=== PATIENT | female | born 1995 ===

== ENCOUNTER 2017-10-17 11:06 | Emergency (ER) | payer MEDICAID, OTHER ==
[2017-10-17 11:17] VITALS: BP 108/71; PULSE 76; RESP 20; TEMP 97.8; O2SAT 99
--- NOTE | 2017-10-17 11:51 | RAD ---
HISTORY: COUGH COMPARISON: None available. TECHNIQUE: Chest PA and lateral FINDINGS: LUNGS: Minimal right perihilar opacity likely subsegmental atelectasis. Developing infiltrate cannot be entirely excluded. Please note that chest x-ray has limited sensitivity for the detection of pulmonary masses. PLEURA: No significant pleural effusion identified. No definite pneumothorax . CARDIOVASCULAR: The cardiomediastinal silhouette appears within normal limits of size. OSSEOUS STRUCTURES: No acute osseous abnormality identified. VISUALIZED UPPER ABDOMEN: Unremarkable. OTHER FINDINGS: None. IMPRESSION: Minimal right perihilar opacity likely subsegmental atelectasis. Developing infiltrate cannot be entirely excluded. Correlate clinically.
--- NOTE | 2017-10-17 11:59 | C.PDOC ---
History Of Present Illness 22 y/o female, with a history of smoking, presents to the ER complaining of coughing which has been present for two weeks. She reports that she coughs up " dark phlegm". She also reports associated post-tussive vomiting and diarrhea. She denies any chest pain or shortness of breath. Time Seen by Provider: 10/17/17 11:41 Chief Complaint (Nursing): Cough, Cold, Congestion History Per: Patient History/Exam Limitations: no limitations Onset/Duration Of Symptoms: Days Current Symptoms Are (Timing): Still Present Associated Symptoms: Cough, Sputum (black ), Vomiting (post-tussive), Diarrhea Past Medical History Reviewed: Historical Data, Nursing Documentation, Vital Signs Vital Signs: Last Vital Signs Temp 97.8 F 10/17/17 11:15 Pulse 76 10/17/17 11:15 Resp 20 10/17/17 11:15 BP 108/71 10/17/17 11:15 Pulse Ox 99 10/17/17 12:13 - Medical History PMH: Anxiety, Asthma, Bipolar Disorder, Depression Denies: Diabetes, Hepatitis, HIV, HTN, Chronic Kidney Disease, Seizures, Sexually Transmitted Disease Surgical History: No Surg Hx - [facility] Procedures MONITORING NOS (12/11/14) MANUAL ASSIST DELIV NEC (12/11/14) Family History: States: No Known Family Hx - Social History Hx Tobacco Use: Yes Hx Alcohol Use: Yes Hx Substance Use: No - Immunization History Hx Tetanus Toxoid Vaccination: No Hx Influenza Vaccination: No Hx Pneumococcal Vaccination: No Review Of Systems Constitutional: Negative for: Fever, Chills Cardiovascular: Negative for: Chest Pain Respiratory: Positive for: Cough, Sputum (dark phlegm). Negative for: Shortness of Breath Gastrointestinal: Positive for: Vomiting (post-tussive vomiting), Diarrhea. Negative for: Nausea Physical Exam - Physical Exam Appears: Other (uncomfortable) Skin: Normal Color, Warm Head: Atraumatic, Normacephalic Eye(s): bilateral: Normal Inspection Nose: Other (sinus congestion noted) Oral Mucosa: Moist Neck: Supple Chest: Symmetrical Cardiovascular: Rhythm Regular Respiratory: Normal Breath Sounds, No Accessory Muscle Use Neurological/Psych: Oriented x3, Normal Speech, Normal Cognition ED Course And Treatment O2 Sat by Pulse Oximetry: 99 (RA) Pulse Ox Interpretation: Normal - Radiology CXR: Interpreted by Me CXR Interpretation: Yes: No Acute Disease Progress Note: Patient offered nebulizer treatment which she declined. Patient to be discharged home with inhaler, antibiotics and instructions for follow up. Disposition Counseled Patient/Family Regarding: Studies Performed, Diagnosis, Need For Followup, Rx Given - Disposition Referrals: YOUR,PMD [Other] Disposition: HOME/ ROUTINE Disposition Time: 11:58 Condition: IMPROVED Prescriptions: Albuterol HFA [Ventolin HFA 90 mcg/actuation (8 g)] 1 puff IH Q4 #1 inhaler Azithromycin 250 mg PO DAILY #6 tab Benzonatate [Tessalon Perles] 200 mg PO TID PRN #15 sgl PRN Reason: Cough Instructions: Acute Bronchitis (ED) Forms: [employer] (Guyanese) - Clinical Impression Clinical Impression: Bronchitis - Scribe Statement Alistair Rutledge Provider Attestation: All medical record entries made by the Scribe were at my direction and personally dictated by me. I have reviewed the chart and agree that the record accurately reflects my personal performance of the history, physical exam, medical decision making, and the department course for this patient. I have also personally directed, reviewed, and agree with the discharge instructions and disposition.
== END 2017-10-17 12:12 | disposition home or self-care (01) ==
LOC: C.ER 11:06
DX: J40 Bronchitis, not specified as acute or chronic (principal)

== ENCOUNTER 2017-10-29 17:55 | Emergency (ER) | payer OTHER ==
[2017-10-29 18:01] VITALS: TEMP 98.6; O2SAT 96
[2017-10-29] MEDS ORDERED: Albuterol-Ipratrop 3 mg / 0.5 (3 ml) UD IH STA (18:17)
--- NOTE | 2017-10-29 18:21 | C.PDOC ---
History Of Present Illness 22 yo female w/PMHx of asthma come in for evaluation of cold sx for past 2 weeks associated with runny nose, productive cough with brownish sputum. As per pt, for past few days developed asthma sx associated with chest tightness, wheezing. Pt sts, ran out of albuterol inh. Otherwise, pt denies fever, chills, headache, dizziness, drooling, neck pain, CP, dyspnea, palpitation, abd. pain, V /D, back pain. Ambulate to ED for evaluation, not in resp. distress. Time Seen by Provider: 10/29/17 18:03 Chief Complaint (Nursing): Cough, Cold, Congestion History Per: Patient Onset/Duration Of Symptoms: Gradual Past Medical History Reviewed: Historical Data, Nursing Documentation, Vital Signs Vital Signs: Last Vital Signs Temp 98.6 F 10/29/17 18:00 Pulse 101 H 10/29/17 18:00 Resp 20 10/29/17 18:00 BP 116/64 10/29/17 18:00 Pulse Ox 96 10/29/17 18:25 - Medical History PMH: Anxiety, Asthma, Bipolar Disorder, Depression Denies: Diabetes, Hepatitis, HIV, HTN, Chronic Kidney Disease, Seizures, Sexually Transmitted Disease Surgical History: No Surg Hx - [facility] Procedures MONITORING NOS (12/11/14) MANUAL ASSIST DELIV NEC (12/11/14) Family History: States: No Known Family Hx - Social History Hx Tobacco Use: Yes Hx Alcohol Use: Yes Hx Substance Use: No - Immunization History Hx Tetanus Toxoid Vaccination: No Hx Influenza Vaccination: No Hx Pneumococcal Vaccination: No Review Of Systems Except As Marked, All Systems Reviewed And Found Negative. Constitutional: Negative for: Fever, Chills ENT: Positive for: Nose Discharge, Nose Congestion. Negative for: Ear Discharge , Throat Swelling Cardiovascular: Positive for: Chest Pain Respiratory: Positive for: Cough, Sputum, Wheezing Gastrointestinal: Negative for: Nausea, Vomiting, Abdominal Pain Genitourinary: Negative for: Dysuria, Incontinence Musculoskeletal: Negative for: Neck Pain, Back Pain Skin: Negative for: Rash Neurological: Negative for: Weakness, Numbness, Altered Mental Status, Dizziness Physical Exam - Physical Exam Appears: Well, No Acute Distress Skin: Normal Color, Warm, Dry, No Rash Eye(s): bilateral: PERRL Ear(s): Bilateral: Normal Nose: No Flaring, Discharge (scant B/L, clear) Oral Mucosa: Moist, No Drooling Throat: No Erythema, No Exudate Neck: Trachea Midline, Supple Cardiovascular: Rhythm Regular Respiratory: No Decreased Breath Sounds, No Accessory Muscle Use, No Rales, No Rhonchi, Wheezing (scattered Right base wheezing. BS equal B/L.) Gastrointestinal/Abdominal: Soft, No Tenderness, No Distention, No Guarding Extremity: Normal ROM, No Deformity, No Swelling Neurological/Psych: Oriented x3, Normal Speech ED Course And Treatment O2 Sat by Pulse Oximetry: 96 Pulse Ox Interpretation: Normal - Radiology CXR: Interpreted by Me, Viewed By Me CXR Interpretation: Yes: No Acute Disease Progress Note: On re-evaluation, pt is afebrile, hemodynamicaly stable. Non- toxic. Pt reports, moderate improvement in sx, and request disachrge now. PulseOx 96% RA. ENT: no acute findings. NEck: Supple, (-) meningeal sign. LUngs: mod improvement in wheezing, BS equal B/L. Abd: Benign. Back:(-) CVA tenderness. CXR- no acute findings. PT has clinical findings c/w asthma exacerbation, acute bronchitis. Pt advised on course of ds. ref. to F/u with PMD in 2-3 days for re-eavl. return to ED if any worsening or new changes. Disposition Counseled Patient/Family Regarding: Studies Performed, Diagnosis, Need For Followup, Rx Given - Disposition Referrals: [facility] [Outside] Disposition: HOME/ ROUTINE Disposition Time: 18:58 Condition: STABLE Additional Instructions: ENCOURAGE FLUIDS TAKE MEDICATION PRESCRIBED FOLLOW UP WITH PMD, PULMONOLOGY IN 2-3 DAYS FOR RE-EVALUATION. RETURN TO ED IF ANY WORSENING OR NEW CHANGES. Prescriptions: Albuterol HFA [Ventolin HFA 90 mcg/actuation (8 g)] 1 puff IH Q6 #1 inhaler Azithromycin [Zithromax] 250 mg PO DAILY #4 tab Loratadine/Pseudoephedrine [Claritin-D 24 Hour Tablet] 1 each PO DAILY #10 tab.er.24h Prednisone [Deltasone] 40 mg PO DAILY #6 tablet Instructions: Asthma (ED), Acute Bronchitis (ED) Forms: [employer] (Malawian) - Clinical Impression Clinical Impression: Bronchitis, Asthma
[2017-10-29] MEDS ORDERED: Albuterol-Ipratrop 3 mg / 0.5 (3 ml) UD ONE (18:36)
[2017-10-29 19:08] VITALS: BP 136/83; PULSE 102; RESP 18
--- NOTE | 2017-10-30 09:25 | RAD ---
HISTORY: COMPARISON: 10/17/2017 TECHNIQUE: Chest PA and lateral FINDINGS: LINES AND TUBES: None. LUNG AND PLEURA: The lungs are well inflated and clear. HEART AND MEDIASTINUM: The heart is not enlarged. The hilar and mediastinal contours are within normal limits. SKELETAL STRUCTURES: The bony structures are within normal limits for the patient's age. VISUALIZED UPPER ABDOMEN: Normal. OTHER FINDINGS: None. IMPRESSION: No active pulmonary disease.
== END 2017-10-29 19:08 | disposition home or self-care (01) ==
LOC: C.ER 17:55
DX: J45.909 Unspecified asthma, uncomplicated (principal); Z87.891 Personal history of nicotine dependence

== ENCOUNTER 2017-12-08 15:38 | Emergency (ER) | payer OTHER ==
[2017-12-08 16:20] VITALS: BP 107/74; PULSE 90; RESP 18; TEMP 98.3; O2SAT 98
--- NOTE | 2017-12-08 17:28 | C.PDOC ---
History Of Present Illness 22 year old female presents to the ED c/o sore throat, productive cough with yellow phlegm for the past 3 days. Patient is also c/o foot fungus as well. Patient denies fever, chills, nausea, vomit, diarrhea, recent travel, sick contacts. Time Seen by Provider: 12/08/17 16:58 Chief Complaint (Nursing): ENT Problem History Per: Patient History/Exam Limitations: no limitations Onset/Duration Of Symptoms: Days Current Symptoms Are (Timing): Still Present Location Of Pain: Throat Sick Contacts (Context): None Associated Symptoms: Cough, Sputum Ear Symptoms: Bilateral: None Recent travel outside of the [place]: No Additional History Per: Patient Past Medical History Reviewed: Historical Data, Nursing Documentation, Vital Signs Vital Signs: Last Vital Signs Temp 98.3 F 12/08/17 16:18 Pulse 90 12/08/17 16:18 Resp 18 12/08/17 16:18 BP 107/74 12/08/17 16:18 Pulse Ox 98 12/08/17 17:28 - Medical History PMH: Anxiety, Asthma, Bipolar Disorder, Depression Denies: Diabetes, Hepatitis, HIV, HTN, Chronic Kidney Disease, Seizures, Sexually Transmitted Disease Surgical History: No Surg Hx - [facility] Procedures MONITORING NOS (12/11/14) MANUAL ASSIST DELIV NEC (12/11/14) Family History: States: Unknown Family Hx - Social History Hx Tobacco Use: Yes Hx Alcohol Use: Yes Hx Substance Use: No - Immunization History Hx Tetanus Toxoid Vaccination: No Hx Influenza Vaccination: No Hx Pneumococcal Vaccination: No Review Of Systems Constitutional: Negative for: Fever, Chills ENT: Positive for: Throat Pain Cardiovascular: Negative for: Chest Pain, Palpitations Respiratory: Positive for: Cough, Sputum Gastrointestinal: Negative for: Nausea, Vomiting, Abdominal Pain Genitourinary: Negative for: Dysuria, Hematuria Skin: Positive for: Rash Neurological: Negative for: Weakness, Numbness, Headache Physical Exam - Physical Exam Appears: Non-toxic, No Acute Distress Skin: Normal Color, Warm, Dry Head: Atraumatic, Normacephalic Eye(s): bilateral: Normal Inspection Ear(s): Bilateral: Normal Nose: No Discharge, No Deformity Oral Mucosa: Moist Throat: Erythema (tonsillar hypertrophy), Exudate (scant) Lymphatic: Adenopathy (tenderness B/L anterior cervical ) Extremity: Normal ROM, No Tenderness, Capillary Refill (< 2 seconds), No Deformity, No Swelling, Other (+ fungal rash B/L web spaces of toes, no cellulitic process) Pulses: Left Dorsalis Pedis: Normal, Right Dorsalis Pedis: Normal Neurological/Psych: Oriented x3, Normal Speech, Normal Cognition Gait: Steady ED Course And Treatment O2 Sat by Pulse Oximetry: 98 (On RA) Pulse Ox Interpretation: Normal Medical Decision Making Medical Decision Making: Impression : pharyngitis and fungal pedis Plan: * Amoxicillin 500 mg PO * Motrin 600 mg PO Disposition Counseled Patient/Family Regarding: Studies Performed, Diagnosis, Need For Followup, Rx Given - Disposition Referrals: at [facility] [Outside] Disposition: HOME/ ROUTINE Disposition Time: 17:26 Condition: STABLE Additional Instructions: follow up with doctor in 2 days call to make an appointment take medication as needed for pain return to ER if symptoms worsens or progress Prescriptions: Amoxicillin 875 mg PO BID #20 tablet Clotrimazole 1% Cream [Lotrimin 1%] 1 applic TP BID #30 tube Instructions: Tinea Pedis (ED), Pharyngitis (ED) Forms: [employer] (Nepali) - Clinical Impression Clinical Impression: Pharyngitis, Tinea pedis - Scribe Statement The provider has reviewed the documentation as recorded by the Scribiftikhar Banuelos All medical record entries made by the Scribe were at my direction and personally dictated by me. I have reviewed the chart and agree that the record accurately reflects my personal performance of the history, physical exam, medical decision making, and the department course for this patient. I have also personally directed, reviewed, and agree with the discharge instructions and disposition.
== END 2017-12-08 17:48 | disposition home or self-care (01) ==
LOC: C.ER 15:38
DX: B35.3 Tinea pedis (principal); J02.9 Acute pharyngitis, unspecified; Z87.891 Personal history of nicotine dependence

== ENCOUNTER 2017-12-29 09:28 | Emergency (ER) | payer OTHER ==
[2017-12-29 09:30] VITALS: BMI 27.4
[2017-12-29 09:33] VITALS: BP 128/85; RESP 18; TEMP 99.5; O2SAT 99
[2017-12-29 09:34] VITALS: PULSE 101
== END 2017-12-29 09:35 | disposition left against medical advice (07) ==
LOC: C.ER 09:28
DX: Z02.89 Encounter for other administrative examinations (principal); R05 Cough

== ENCOUNTER 2018-05-20 12:21 | Emergency (ER) | payer OTHER ==
[2018-05-20 12:22] VITALS: BMI 27.4
[2018-05-20 12:29] VITALS: BP 111/75; PULSE 79; RESP 18; TEMP 98.5; O2SAT 98
[2018-05-20] MEDS ORDERED: Albuterol 0.083% Inhal Sol (2.5 mg/3 mL) UD IH STA (12:46)
[2018-05-20] MEDS ORDERED: Albuterol 0.083% Inhal Sol (2.5 mg/3 mL) UD ONE (12:56)
--- NOTE | 2018-05-20 13:03 | C.PDOC ---
History Of Present Illness 23yo female, comes to ER with complaints of non-productive cough and mild wheeze x 1 week and sore throat x 1 day. She denies any fever, rhinorrhea or ear pain. She is also requesting a refill of Seroquil (50 mg at night) stating she ran out of her medication a few days ago. Otherwise, she offers no other medical complaints. Time Seen by Provider: 05/20/18 12:30 Chief Complaint (Nursing): Cough, Cold, Congestion History Per: Patient History/Exam Limitations: no limitations Onset/Duration Of Symptoms: Days Current Symptoms Are (Timing): Still Present Associated Symptoms: Cough, Sputum Production Additional History Per: Patient Past Medical History Reviewed: Historical Data, Nursing Documentation, Vital Signs Vital Signs: Last Vital Signs Temp 98.5 F 05/20/18 12:26 Pulse 79 05/20/18 12:26 Resp 18 05/20/18 12:26 BP 111/75 05/20/18 12:26 Pulse Ox 98 05/20/18 13:51 - Medical History PMH: Anxiety, Asthma, Bipolar Disorder, Depression Denies: Diabetes, Hepatitis, HIV, HTN, Chronic Kidney Disease, Seizures, Sexually Transmitted Disease Surgical History: No Surg Hx - [facility] Procedures MONITORING NOS (12/11/14) MANUAL ASSIST DELIV NEC (12/11/14) Family History: States: Unknown Family Hx - Social History Hx Tobacco Use: Yes Hx Alcohol Use: No Hx Substance Use: No - Immunization History Hx Tetanus Toxoid Vaccination: Yes Hx Influenza Vaccination: Yes Hx Pneumococcal Vaccination: Yes Review Of Systems Constitutional: Negative for: Fever, Chills ENT: Positive for: Throat Pain. Negative for: Ear Pain, Nose Discharge Cardiovascular: Negative for: Chest Pain Respiratory: Positive for: Cough, Wheezing. Negative for: Shortness of Breath Physical Exam - Physical Exam Appears: Non-toxic, No Acute Distress Skin: Warm, Dry Head: Atraumatic, Normacephalic Eye(s): bilateral: Normal Inspection Ear(s): Bilateral: Normal Nose: Normal, No Discharge Oral Mucosa: Moist Throat: Normal, No Erythema, No Exudate, No Drooling, No Mass, Other (uvula normal appearing and midline) Neck: Normal ROM, Supple Chest: Symmetrical Cardiovascular: Rhythm Regular Respiratory: No Accessory Muscle Use, Wheezing (mild expiratory wheeze), Other ( speaking full sentences) Gastrointestinal/Abdominal: Soft, No Tenderness Extremity: Normal ROM, No Pedal Edema Neurological/Psych: Oriented x3 ED Course And Treatment O2 Sat by Pulse Oximetry: 98 (RA) Pulse Ox Interpretation: Normal Progress Note: Prednisone and Albuterol treatment ordered; patient refused neb treatment. Rx for prednisone, albuterol inhaler and Seroquil (5 day supply). Patient instructed on strict follow up with her psychiatrist for seroquil prescription. Disposition Counseled Patient/Family Regarding: Diagnosis, Need For Followup, Rx Given - Disposition Referrals: Cynthia HANDLEY,MD Rosa [Medical Doctor] - Disposition: HOME/ ROUTINE Disposition Time: 13:00 Condition: STABLE Prescriptions: Albuterol HFA [Ventolin HFA 90 mcg/actuation (8 g)] 0.09 mg IH Q4 PRN #1 puff PRN Reason: Wheezing predniSONE [predniSONE Tab] 40 mg PO DAILY #8 tab Quetiapine Fumarate [Seroquel] 50 mg PO HS #14 tab Instructions: Asthma, Adult (DC) Forms: [employer] (Namibian), Work Excuse Print Language: BERMUDIAN - Clinical Impression Clinical Impression: Viral disease, Asthma, Medication refill - Scribe Statement The provider has reviewed the documentation as recorded by the Shahram Parson Provider Attestation: All medical record entries made by the Shahram were at my direction and personally dictated by me. I have reviewed the chart and agree that the record accurately reflects my personal performance of the history, physical exam, medical decision making, and the department course for this patient. I have also personally directed, reviewed, and agree with the discharge instructions and disposition.
== END 2018-05-20 13:08 | disposition home or self-care (01) ==
LOC: C.ER 12:21
DX: J45.909 Unspecified asthma, uncomplicated (principal); B34.9 Viral infection, unspecified; Z76.0 Encounter for issue of repeat prescription

== ENCOUNTER 2018-06-14 12:18 | Emergency (ER) | payer OTHER ==
[2018-06-14 12:18] VITALS: BMI 27.4
[2018-06-14 12:35] VITALS: TEMP 98.5; O2SAT 100
[2018-06-14 13:24] LABS: BASO # 0.1 K/uL (0.0-0.2); BASO % 0.6 % (0.0-2.0); EOS # 0.2 K/uL (0.0-0.7); LYMPH # 2.8 K/uL (1.0-4.3); LYMPH % 24.1 % (20.0-40.0); MEAN CELL VOLUME 91.3 fL (81.0-99.0); MEAN CORPUSCULAR HEMOGLOBIN 31.1 pg (27.0-31.0); MEAN CORPUSCULAR HGB CONC 34.1 g/dL (33.0-37.0); MEAN PLATELET VOLUME 8.9 fL (7.2-11.7); MONO # 0.5 K/uL (0.0-0.8); MONO % 4.4 % (0.0-10.0); NEUT # 7.9 K/uL (1.8-7.0); NEUT % 68.9 % (50.0-75.0); RBC 4.51 Mil/uL (3.80-5.20); WHITE BLOOD COUNT 11.5 K/uL (4.8-10.8)
[2018-06-14 13:30] LABS: HCG,QUALITATIVE URINE NEGATIVE (NEGATIVE)
[2018-06-14 13:32] LABS: SQUAMOUS EPITHIAL 92 /hpf (0-5); URINE BILIRUBIN 1+ (NEGATIVE); URINE BLOOD NEGATIVE (NEGATIVE); URINE CLARITY Hazy (Clear); URINE COLOR Amber (YELLOW); URINE GLUCOSE (UA) NORMAL (Normal); URINE LEUKOCYTE ESTERASE 2+ Leu/uL (Negative); URINE PROTEIN NEGATIVE (NEGATIVE)
[2018-06-14] MEDS ORDERED: Sodium Chloride 0.9% 1,000 ML IV ONE (13:34)
[2018-06-14 13:38] LABS: ALB/GLOB RATIO 1.4 (1.0-2.1); ALT/SGPT 20 U/L (9-52); AST/SGOT 17 U/L (14-36); BLOOD UREA NITROGEN 14 mg/dL (7-17); CALCIUM 8.9 mg/dl (8.6-10.4); GFR AFRICAN-AMERICAN > 60; GFR NON-AFRICAN AMERICAN > 60
[2018-06-14] MEDS ORDERED: Sodium Chloride 0.9% 1,000 ML ONE (13:41)
--- NOTE | 2018-06-14 13:46 | C.PDOC ---
History Of Present Illness 23 year old female with history of bipolar, depression, anxiety, and mild asthma presents to ED stating she has not been feeling well the past 2 days. Patient reports she is nauseous, vomiting, and has cough that occurred when she ran out of seroquel. She called her psychiatrist to get an appointment for a refill, but was unable to. Patient states she tries taking some fluids and is unable to keep anything down. She reports this occurs when she runs out of her medication and was here on the May, with a similar episode. Denies chest pain, shortness of breath, abdominal pain. Time Seen by Provider: 06/14/18 12:50 Chief Complaint (Nursing): GI Problem History Per: Patient History/Exam Limitations: no limitations Onset/Duration Of Symptoms: Days Current Symptoms Are (Timing): Still Present Recent travel outside of the [place]: No Past Medical History Reviewed: Historical Data, Nursing Documentation, Vital Signs Vital Signs: Last Vital Signs Temp 98.5 F 06/14/18 15:01 Pulse 87 06/14/18 15:01 Resp 14 06/14/18 15:01 BP 134/84 06/14/18 15:01 Pulse Ox 100 06/14/18 15:01 - Medical History PMH: Anxiety, Asthma, Bipolar Disorder, Depression Denies: Diabetes, Hepatitis, HIV, HTN, Chronic Kidney Disease, Seizures, Sexually Transmitted Disease Surgical History: No Surg Hx - [facility] Procedures MONITORING NOS (12/11/14) MANUAL ASSIST DELIV NEC (12/11/14) Family History: States: No Known Family Hx - Social History Hx Tobacco Use: Yes Hx Alcohol Use: No Hx Substance Use: No - Immunization History Hx Tetanus Toxoid Vaccination: Yes Hx Influenza Vaccination: Yes Hx Pneumococcal Vaccination: Yes Review Of Systems Constitutional: Negative for: Fever Cardiovascular: Negative for: Chest Pain Respiratory: Positive for: Cough. Negative for: Shortness of Breath Gastrointestinal: Positive for: Nausea, Vomiting. Negative for: Abdominal Pain Neurological: Negative for: Weakness, Numbness Physical Exam - Physical Exam Appears: Non-toxic, No Acute Distress Skin: Warm, Dry, No Rash Head: Atraumatic, Normacephalic Eye(s): bilateral: Normal Inspection Oral Mucosa: Moist Chest: Symmetrical Cardiovascular: Rhythm Regular Respiratory: Normal Breath Sounds, No Rales, No Rhonchi, No Wheezing Gastrointestinal/Abdominal: Soft, No Tenderness, No Guarding, No Rebound Neurological/Psych: Oriented x3 Gait: Steady Additional Physical Exam Comments: Patient exhibits normal behavior and does not seem depressed. ED Course And Treatment - Laboratory Results Result Diagrams: 06/14/18 13:20 06/14/18 13:20 Lab Interpretation: No Acute Changes O2 Sat by Pulse Oximetry: 100 (RA) Pulse Ox Interpretation: Normal Reevaluation Time: 15:08 Reassessment Condition: Improved (after Zofran and fluids.) Medical Decision Making Medical Decision Making: Impression: bipolar disorder requiring medication. Plan: * Labs * IV fluids * Zofran ODT * Urinalysis Disposition Counseled Patient/Family Regarding: Studies Performed, Diagnosis, Need For Followup, Rx Given - Disposition Referrals: Cynthia HANDLEY,MD Rosa [Medical Doctor] - Disposition: HOME/ ROUTINE Disposition Time: 15:09 Condition: IMPROVED Prescriptions: QUEtiapine [SEROquel] 50 mg PO HS #14 tab Instructions: Bipolar Disorder Forms: [facility] (Latvian) - Clinical Impression Clinical Impression: Bipolar disorder - Scribe Statement The provider has reviewed the documentation as recorded by the Shahram Kaufman Brian Provider Attestation: All medical record entries made by the Shahram were at my direction and personally dictated by me. I have reviewed the chart and agree that the record accurately reflects my personal performance of the history, physical exam, medical decision making, and the department course for this patient. I have also personally directed, reviewed, and agree with the discharge instructions and disposition.
[2018-06-14 15:02] VITALS: BP 134/84; PULSE 87; RESP 14
== END 2018-06-14 15:16 | disposition home or self-care (01) ==
LOC: C.ER 12:18
DX: F31.9 Bipolar disorder, unspecified (principal)
CPT/HCPCS: 80053; 81001; 84703; 85025; 96360; 99285; J7030

== ENCOUNTER 2019-02-08 18:23 | Emergency (ER) | payer MEDICAID, OTHER ==
[2019-02-08 18:29] VITALS: BMI 35.5
[2019-02-08 18:33] VITALS: BP 91/61; PULSE 76; RESP 18; TEMP 98.3; O2SAT 99
[2019-02-08] MEDS ORDERED: Sodium Chloride 0.9% 1,000 ML IV ONE (18:47)
[2019-02-08] MEDS ORDERED: Sodium Chloride 0.9% 1,000 ML ONE (18:58)
[2019-02-08 18:59] LABS: BASO # 0.1 K/uL (0.0-0.2); BASO % 0.9 % (0.0-2.0); EOS # 0.2 K/uL (0.0-0.7); EOS % 1.9 % (0.0-4.0); LYMPH # 2.8 K/uL (1.0-4.3); LYMPH % 26.1 % (20.0-40.0); MEAN CORPUSCULAR HEMOGLOBIN 30.5 pg (27.0-31.0); MEAN CORPUSCULAR HGB CONC 33.1 g/dL (33.0-37.0); MEAN PLATELET VOLUME 8.9 fL (7.2-11.7); MONO # 0.6 K/uL (0.0-0.8); MONO % 5.2 % (0.0-10.0); NEUT % 65.9 % (50.0-75.0); NRBC % 0.1 % (0.0-2.0); RBC 4.28 Mil/uL (3.80-5.20); RED CELL DISTRIBUTION WIDTH 15.1 % (11.5-14.5); WHITE BLOOD COUNT 10.6 K/uL (4.8-10.8)
[2019-02-08 19:00] LABS: SQUAMOUS EPITHIAL 5 /hpf (0-5); URINE BACTERIA RARE (<OCC); URINE BILIRUBIN NEGATIVE (NEGATIVE); URINE BLOOD NEGATIVE (NEGATIVE); URINE CLARITY Hazy (Clear); URINE COLOR Yellow (YELLOW); URINE GLUCOSE (UA) NORMAL (Normal); URINE LEUKOCYTE ESTERASE NEG Leu/uL (Negative); URINE PROTEIN NEGATIVE (NEGATIVE); URINE UROBILINOGEN NORMAL mg/dL (0.2-1.0)
[2019-02-08 19:10] LABS: ALB/GLOB RATIO 1.3 (1.0-2.1); ALT/SGPT 11 U/L (9-52); AST/SGOT 18 U/L (14-36); BLOOD UREA NITROGEN 13 mg/dL (7-17); CALCIUM 8.9 mg/dl (8.6-10.4); GFR NON-AFRICAN AMERICAN > 60
--- NOTE | 2019-02-08 19:56 | C.PDOC ---
History Of Present Illness 24 year old female, AB 2, presents to the ED c/o daily nausea and vomiting. Patient reports she recently had a home positive test at home. Patient denies fever, chills, abdominal pain, diarrhea, rash, vaginal bleeding, vaginal discharge. Time Seen by Provider: 02/08/19 18:34 Chief Complaint (Nursing): GI Problem History Per: Patient History/Exam Limitations: no limitations Onset/Duration Of Symptoms: Days Current Symptoms Are (Timing): Still Present Radiation Of Pain To:: None Quality Of Discomfort: Unable To Describe Associated Symptoms: Nausea, Vomiting. denies: Diarrhea, Urinary Symptoms Recent travel outside of the [place]: No Additional History Per: Patient Abnormal Vaginal Bleeding: No : 4 Para: 1 Miscarriage: 2 Past Medical History Reviewed: Historical Data, Nursing Documentation, Vital Signs Vital Signs: Last Vital Signs Temp 98.3 F 02/08/19 18:28 Pulse 76 02/08/19 18:28 Resp 18 02/08/19 18:28 BP 91/61 L 02/08/19 18:28 Pulse Ox 99 02/08/19 18:28 - Medical History PMH: Anxiety, Asthma, Bipolar Disorder, Depression Denies: Diabetes, Hepatitis, HIV, HTN, Chronic Kidney Disease, Seizures, Sexually Transmitted Disease Surgical History: No Surg Hx - [facility] MONITORING NOS (12/11/14) MANUAL ASSIST DELIV NEC (12/11/14) Family History: States: Unknown Family Hx - Social History Hx Tobacco Use: Yes Hx Alcohol Use: No Hx Substance Use: No - Immunization History Hx Tetanus Toxoid Vaccination: Yes Hx Influenza Vaccination: No Hx Pneumococcal Vaccination: No Review Of Systems Constitutional: Negative for: Fever, Chills Cardiovascular: Negative for: Chest Pain Respiratory: Negative for: Shortness of Breath Gastrointestinal: Positive for: Nausea, Vomiting. Negative for: Abdominal Pain, Diarrhea Genitourinary: Negative for: Dysuria, Vaginal Discharge, Vaginal Bleeding Musculoskeletal: Negative for: Back Pain Neurological: Negative for: Weakness, Numbness, Headache Physical Exam - Physical Exam Appears: Non-toxic, No Acute Distress Skin: Normal Color, Warm, Dry Head: Atraumatic, Normacephalic Eye(s): bilateral: Normal Inspection Oral Mucosa: Moist Neck: Normal ROM, Supple Chest: Symmetrical Cardiovascular: Rhythm Regular Respiratory: Normal Breath Sounds, No Rales, No Rhonchi, No Wheezing Gastrointestinal/Abdominal: Soft, No Tenderness, No Guarding, No Rebound Extremity: Normal ROM, No Tenderness, No Swelling Neurological/Psych: Oriented x3, Normal Speech, Normal Cognition Gait: Steady ED Course And Treatment - Laboratory Results Result Diagrams: 02/08/19 18:54 02/08/19 18:54 Lab Results: Total Bilirubin 0.3 mg/dL (0.2-1.3) 02/08/19 18:54 AST 18 U/L (14-36) 02/08/19 18:54 ALT 11 U/L (9-52) 02/08/19 18:54 Alkaline Phosphatase 69 U/L (38-126) 02/08/19 18:54 Total Protein 7.2 g/dL (6.3-8.3) 02/08/19 18:54 Albumin 4.0 g/dL (3.5-5.0) 02/08/19 18:54 Globulin 3.2 gm/dL (2.2-3.9) 02/08/19 18:54 Albumin/Globulin Ratio 1.3 (1.0-2.1) 02/08/19 18:54 Urine Color Yellow (YELLOW) 02/08/19 18:54 Urine Clarity Hazy (Clear) 02/08/19 18:54 Urine pH 5.0 (5.0-8.0) 02/08/19 18:54 Ur Specific [place] 1.020 (1.003-1.030) 02/08/19 18:54 Urine Protein Negative mg/dL (NEGATIVE) 02/08/19 18:54 Urine Glucose (UA) Normal mg/dL (Normal) 02/08/19 18:54 Urine Ketones Negative mg/dL (NEGATIVE) 02/08/19 18:54 Urine Blood Negative (NEGATIVE) 02/08/19 18:54 Urine Nitrate Negative (NEGATIVE) 02/08/19 18:54 Urine Bilirubin Negative (NEGATIVE) 02/08/19 18:54 Urine Urobilinogen Normal mg/dL (0.2-1.0) 02/08/19 18:54 Ur Leukocyte Esterase Neg [place]/uL (Negative) 02/08/19 18:54 Urine WBC (Auto) 1 /hpf (0-5) 02/08/19 18:54 Urine RBC (Auto) 2 /hpf (0-3) 02/08/19 18:54 Ur Squamous Epith Cells 5 /hpf (0-5) 02/08/19 18:54 Urine Bacteria Rare (<OCC) 02/08/19 18:54 O2 Sat by Pulse Oximetry: 99 (ON RA) Pulse Ox Interpretation: Normal Medical Decision Making Medical Decision Making: Assessment: Nausea and vomiting Plan: * Labs * Reglan 10 mg IVP * Pepcid 20 mg IVP * IV fluids * UA Positive test while in the ED. Patient eloped from the ED at 19:55. Patient diagnosed with vomiting in Disposition Counseled Patient/Family Regarding: Studies Performed, Diagnosis - Disposition Referrals: at [facility] [Outside] Disposition: ELOPEMENT - ER ONLY Disposition Time: 19:55 Condition: STABLE Forms: [facility] (Citizen [place]) - Clinical Impression Clinical Impression: Vomiting affecting - Scribe Statement The provider has reviewed the documentation as recorded by the Scribe Guicho Banuelos All medical record entries made by the Scribe were at my direction and personally dictated by me. I have reviewed the chart and agree that the record accurately reflects my personal performance of the history, physical exam, medical decision making, and the department course for this patient. I have also personally directed, reviewed, and agree with the discharge instructions and disposition.
== END 2019-02-08 19:58 | disposition left against medical advice (07) ==
LOC: C.ER 18:23
DX: O21.9 Vomiting of pregnancy, unspecified (principal); Z3A.00 Weeks of gestation of pregnancy not specified
CPT/HCPCS: 80053; 81001; 81025; 85025; 96361; 96374; 96375; 99284; J2765; J7030